=== PATIENT | female | born 1985 | race Caucasian/White ===

== ENCOUNTER 2018-10-18 | Emergency (ER) | payer OTHER ==
[~2018-10-18] VITALS: Ht 154.9 cm; Wt 63.5 kg
[2018-10-18 00:12] VITALS: BP 112/73
== END 2018-10-18 01:11 | disposition home or self-care (01) ==
LOC: ER 00:04
DX: T14.8XXA Other injury of unspecified body region, initial encounter (principal); B86 Scabies; Z90.89 Acquired absence of other organs; W57.XXXA Bitten or stung by nonvenomous insect and other nonvenomous arthropods, initial encounter; Y93.89 Activity, other specified; Y92.89 Other specified places as the place of occurrence of the external cause; Y99.8 Other external cause status